=== PATIENT | female | born 1965 | race Caucasian/White ===

== ENCOUNTER 2017-05-14 14:39 | Emergency (ER) | payer BC ==
[~2017-05-14] VITALS: Ht 165.1 cm; Wt 59.0 kg
[~2017-05-14 14:39] MED LIST: DICY10CA26 PO; HYDR1TAB PO
--- NOTE | 2017-05-14 15:32 | Diagnostic Imaging Report ---
INDICATION: Right ankle pain, swelling. COMPARISON: None. EXAMINATION: Three views of the right ankle were obtained. FINDINGS: No fracture or dislocation. The articular surfaces are normal. No osseous lesion. IMPRESSION: Negative right ankle. Dictated by: Dictated on workstation # [id number]
--- NOTE | 2017-05-14 15:33 | Diagnostic Imaging Report ---
INDICATION: Right rib pain, injury. COMPARISON: None. FINDINGS: 3 views of the right ribs with BB marker in place demonstrate no obvious fracture or osseous lesion. There is no pneumothorax or effusion. IMPRESSION: Negative right rib series. Dictated by: Dictated on workstation # [id number]
--- NOTE | 2017-05-14 15:34 | Diagnostic Imaging Report ---
INDICATION: Right foot pain. COMPARISON: None. EXAMINATION: Three views of the right foot were obtained. FINDINGS: No fracture or dislocation. The articular surfaces are normal. There is no osseous lesion or erosion. No foreign body. IMPRESSION: Negative right foot. Dictated by: Dictated on workstation # [id number]
[2017-05-14] MEDS ORDERED: HYDROcodone/APAP 7.5 MG/325 MG (LORTAB, LORCET PLUS) TABLET PO STA (15:39)
--- NOTE | 2017-05-14 15:39 | ED Lower Extremity ---
General Chief Complaint: Trauma-Non Activation Stated Complaint: R FOOT INJ Nursing Triage Note: Patient advises she was seated in a chair with a blanket over her lap. She stood up and felt her shoes slip and and felt her ankle twist beneath her. She advises that she fell against a counter top striking her right ribs. She denies hitting her head or loss of consciousness at the time of the incident. She c/o right foot and ankle pain as well as right rib pain. Nursing Sepsis Screen: No Definite Risk History of Present Illness Time seen by provider: 14:50 Location Injury Occurred: patients residence Onset: this morning Pain/Injury Location: right ankle, right other (right lower ribs) Method of Injury: fell Modifying Factors: Improves With Rest Allergies and Home Medications Allergies Uncoded Allergies: SULFA (Allergy, Unknown, 05/14/17) Home Medications Dicyclomine Hcl 10 Mg Capsule, 1 EACH PO BID, (Reported) Hydrocodone Bit/Acetaminophen 1 Each Tablet, 1-2 EACH PO Q4HR PRN, #30 (Reported ) Constitutional: no symptoms reported, see HPI Respiratory: see HPI, other (right rib pain) Musculoskeletal: see HPI, joint pain (right ankle and lateral foot pain) All Other Systems Reviewed Negative Unless Noted: Yes Past Ictgfiv-Aodvmm-Fyvvbe Hx Patient Social History Alcohol Use: Denies Use Recreational Drug Use: No Smoking Status: Current Everyday Smoker Type Used: Cigarettes Recent Foreign Travel: No Contact w/Someone Who Travel: No Recent Hopitalizations: No Seasonal Allergies Seasonal Allergies: No Surgeries Surgeries: Hysterectomy, Thyroidectomy Respiratory Hx Respiratory Disorders: No Cardiovascular Hx Cardiac Disorders: No Neurological Hx Neurological Disorders: Yes (MIGRAIN HEADACHES) Reproductive System Hx Reproductive Disorders: No Sexually Transmitted Disease: No Genitourinary Hx Genitourinary Disorders: Yes Gastrointestinal Hx Gastrointestinal Disorders: Yes ("SPASTIC COLON") Musculoskeletal Hx Musculoskeletal Disorders: No Endocrine Hx Endocrine Disorders: No HEENT HX ENT Disorders: No Blood Transfusions Hx Blood Disorders: No Reviewed Nursing Assessment Reviewed/Agree w Nursing PMH: Yes Physical Exam Vital Signs Vital Sign - Last 12Hours Capillary Refill : Less Than 3 Seconds General Appearance: WD/WN, no apparent distress Neck: non-tender, full range of motion, supple, normal inspection Cardiovascular: normal peripheral pulses, regular rate, rhythm, no JVD, no murmur Respiratory: lungs clear, normal breath sounds, no respiratory distress, no accessory muscle use, other (pain to palpation right lower ribs, no crepitus noted. Pain with deep inspiration. No SOA.) Gastrointestinal: normal bowel sounds, non tender, soft, no organomegaly, no pulsatile mass Back: normal inspection, no CVA tenderness, no vertebral tenderness Ankles: right ankle normal range of motion, right ankle bone tenderness ( lateral), right ankle pain, right ankle soft tissue tenderness (lateral aspect) Feet: right foot pain, right foot soft tissue tenderness, right foot swelling ( fifth metatarsal) Neurologic/Psychiatric: no motor/sensory deficits, alert, normal mood/affect, oriented x 3 Skin: normal color, warm/dry Progress/Results/Core Measures Results/Orders My Orders Orders - ABELARDO GONZALEZ Ribs, Right 2-3 Views (05/14/17 15:04) Foot, Right, 3 View (05/14/17 15:04) Ankle, Right, 3 Views (05/14/17 15:04) Hydrocodone/Apap 7.5/325 Tab (Lortab 7. (05/14/17 15:39) Vital Signs/I&O Vital Sign - Last 12Hours 05/14/17 05/14/17 14:52 14:52 Temp 98.7 98.6 Pulse 86 76 Resp 14 14 B/P (MAP) 131/73 131/73 (92) Pulse Ox 98 98 O2 Delivery Room Air Blood Pressure Mean: 92 Progress Note : Time: 14:50 Progress Note Initial evaluation completed, recommended x-rays of the ribs, foot and ankle. Will reevaluate after these are completed. Hydrocodone 7.5/APAP 325 mg for pain. 1540 x-rays all negative for acute injuries. Discussed with patient. 4 inch Alex wrap applied to right ankle. Diagnostic Imaging Plain Films/CT/US/NM/MRI: ankle Comments NAME: PADDY CRABTREE Marissa [facility] REC#: [id number] PT STATUS: REG ER : 1965 PHYSICIAN: ABELARDO GONZALEZ ADMIT DATE: 05/14/17/ER Draft Date of Exam:05/14/17 ANKLE, RIGHT, 3 VIEWS INDICATION: Right ankle pain, swelling. COMPARISON: None. EXAMINATION: Three views of the right ankle were obtained. FINDINGS: No fracture or dislocation. The articular surfaces are normal. No osseous lesion. IMPRESSION: Negative right ankle. Dictated on workstation # [id number] Dict: 05/14/17 1530 Trans: 05/14/17 153 PJE [id number] Interpreted by: MITALI SAWYER Electronically signed by: Reviewed: Reviewed/Discussed Diagonstic Imaging: Xray Plain Films/CT/US/NM/MRI: other (right foot) Comments NAME: PADDY CRABTREE [facility] REC#: [id number] PT STATUS: REG ER : 1965 PHYSICIAN: ABELARDO GONZALEZ ADMIT DATE: 05/14/17/ER Draft Date of Exam:05/14/17 FOOT, RIGHT, 3 VIEW INDICATION: Right foot pain. COMPARISON: None. EXAMINATION: Three views of the right foot were obtained. FINDINGS: No fracture or dislocation. The articular surfaces are normal. There is no osseous lesion or erosion. No foreign body. IMPRESSION: Negative right foot. Dictated on workstation # [id number] Dict: 05/14/17 1531 Trans: 05/14/17 1533 PJE [id number] Interpreted by: MITALI SAWYER Electronically signed by: Reviewed: Reviewed by Ct Diagonstic Imaging: Xray Plain Films/CT/US/NM/MRI: other (right ribs) Comments NAME: PADDY CRABTREE [facility] REC#: [id number] PT STATUS: REG ER : 1965 PHYSICIAN: ABELARDO GONZALEZ ADMIT DATE: 05/14/17/ER Draft Date of Exam:05/14/17 RIBS, RIGHT 2-3 VIEWS INDICATION: Right rib pain, injury. COMPARISON: None. FINDINGS: 3 views of the right ribs with BB marker in place demonstrate no obvious fracture or osseous lesion. There is no pneumothorax or effusion. IMPRESSION: Negative right rib series. Dictated on workstation # [id number] Dict: 05/14/17 1530 Trans: 05/14/17 1532 SA [id number] Interpreted by: MITALI SAWYER Electronically signed by: Departure Impression Impression: Primary Impression: Fall Qualified Codes: W19.XXXA - Unspecified fall, initial encounter Additional Impressions: Ankle sprain Qualified Codes: S93.411A - Sprain of calcaneofibular ligament of right ankle , initial encounter Rib contusion Qualified Codes: S20.211A - Contusion of right front wall of thorax, initial encounter Disposition: HOME, SELF-CARE Condition: Improved Departure-Patient Inst. Decision time for Depature: 15:45 Referrals: IRAJ SAENZ DO (PCP/Family) Primary Care Physician Patient Instructions: Ankle Sprain (DC), RIB CONTUSION Add. Discharge Instructions: Ice to right ankle 20 minutes every 2-3 hours. Gentle range of motion. Advance activity as tolerated. Alternate ice and heat to right ribs. Use pillow to splint area for coughing and deep breathing every 1-2 hours. Follow-up with primary care provider in 3-4 days if symptoms are not improving. Return to emergency department if increased pain and right ankle, difficulty breathing, or new problems. Tylenol 650 mg every 6 hours and/or ibuprofen 600 mg every 8 hours. All discharge instructions reviewed with patient and/or family. Voiced understanding. Copy Copies To 1: IRAJ SAENZ AMY ARNP May 14, 2017 15:39
[2017-05-14 16:08] VITALS: BP 113/79
== END 2017-05-14 16:11 | disposition home or self-care (01) ==
LOC: EDUNIT# 14:39 → ER 14:40
DX: S93.401A Sprain of unspecified ligament of right ankle, initial encounter (principal); S20.211A Contusion of right front wall of thorax, initial encounter; G43.909 Migraine, unspecified, not intractable, without status migrainosus; F17.210 Nicotine dependence, cigarettes, uncomplicated; Z90.89 Acquired absence of other organs; Z87.19 Personal history of other diseases of the digestive system; Z90.710 Acquired absence of both cervix and uterus; W01.198A Fall on same level from slipping, tripping and stumbling with subsequent striking against other object, initial encounter; Y92.009 Unspecified place in unspecified non-institutional (private) residence as the place of occurrence of the external cause
CPT/HCPCS: 71100; 73610; 73630; 99283

== ENCOUNTER → 2019-08-23 | Outpatient (CLI) | payer OTHER ==
[2019-08-23 08:49] LABS: BASOPHILS # (AUTO) 0.1 10^3/uL (0.0-0.1); BASOPHILS % (AUTO) 1 % (0-10); EOSINOPHILS # (AUTO) 0.2 10^3/uL (0.0-0.3); EOSINOPHILS % (AUTO) 3 % (0-10); HEMATOCRIT 42 % (35-52); HEMOGLOBIN 13.7 G/DL (11.5-16.0); LYMPHOCYTES # (AUTO) 1.6 X 10^3 (1.0-4.0); LYMPHOCYTES % (AUTO) 16 % (12-44); MEAN CORPUSCULAR HEMOGLOBIN 30 PG (25-34); MEAN CORPUSCULAR HGB CONC 33 G/DL (32-36); MEAN CORPUSCULAR VOLUME 93 FL (80-99); MONOCYTES # (AUTO) 0.9 X 10^3 (0.0-1.0); MONOCYTES % (AUTO) 9 % (0-12); NEUTROPHILS % (AUTO) 72 % (42-75); PLATELET COUNT 377 10^3/uL (130-400); RED CELL DISTRIBUTION WIDTH 13.4 % (10.0-14.5); WHITE BLOOD COUNT 9.8 10^3/uL (4.3-11.0)
[2019-08-23 08:51] LABS: SMEAR SCAN COMMENT NO
[2019-08-23 09:11] LABS: ALANINE AMINOTRANSFERASE 12 U/L (0-55); ALBUMIN 4.4 GM/DL (3.2-4.5); ALKALINE PHOSPHATASE 74 U/L (40-136); BILIRUBIN,TOTAL 0.5 MG/DL (0.1-1.0); BUN/CREATININE RATIO 19; CALCIUM 9.7 MG/DL (8.5-10.1); CARBON DIOXIDE 24 MMOL/L (21-32); CHLORIDE 108 MMOL/L (98-107); CHOLESTEROL 274 MG/DL (< 200); CREATININE SERUM 0.69 MG/DL (0.60-1.30); GFR ESTIMATED > 60; GLUCOSE 90 MG/DL (70-105); HDL CHOLESTEROL 46 MG/DL (40-60); POTASSIUM 3.9 MMOL/L (3.6-5.0); SODIUM 141 MMOL/L (135-145); TRIGLYCERIDES 85 MG/DL (<150); URIC ACID 3.1 MG/DL (2.6-7.2); VLDL CHOLESTEROL 17 MG/DL (5-40)
[2019-08-23 09:30] LABS: BASOPHILS % (MANUAL) 1 %; EOSINOPHILS % (MANUAL) 6 %; LYMPHOCYTES % (MANUAL) 25 %; MONOCYTES % (MANUAL) 5 %; NEUTROPHILS % (MANUAL) 63 %; RBC MORPH NORMAL
[2019-08-23 09:31] LABS: FREE T4 (FREE THYROXINE) 0.99 NG/DL (0.70-1.48)
== END ==
LOC: LAB 08:35
PROVIDERS: ATTEND Family Medicine
DX: Z00.00 Encounter for general adult medical examination without abnormal findings (principal); M25.50 Pain in unspecified joint; M85.80 Other specified disorders of bone density and structure, unspecified site; R32 Unspecified urinary incontinence; R53.83 Other fatigue
CPT/HCPCS: 36415; 80053; 80061; 82306; 84439; 84443; 84550; 85007; 85027

== ENCOUNTER → 2019-09-05 | Outpatient (CLI) | payer OTHER ==
--- NOTE | 2019-09-05 11:00 | Diagnostic Imaging Report ---
EXAMINATION: CT low dose lung cancer screening exam. INDICATION: 30 pack year smoking history. TECHNIQUE: Routine images of the thorax were obtained using the CT low-dose lung cancer screening protocol. COMPARISON: There are no prior CT examinations of the thorax available for comparison. FINDINGS: There is an irregular 6.3 mm parenchymal density in the anterior aspect of the right middle lobe medially. In the lateral aspect of the right middle lobe, there is a similar appearing density. There are also a few patchy densities in the inferior most portion of the right lung base. These findings were not present on the prior CT abdomen/pelvis exam of 07/29/2016. I am not convinced that these areas of slightly increased density are neoplastic in nature. They could merely be secondary to mild atelectasis/infiltrate. Even so, I would recommend that a short-term (3 month) followup low-dose lung cancer screening exam be performed for further study. No other parenchymal abnormality is identified. There are mild emphysematous changes involving both lungs. There is no sign of failure, pneumonia, or pleural effusion to indicate an acute abnormality. The heart size is within normal limits. There are no coronary artery calcifications identified. The aorta is not abnormally dilated. There is no obvious mediastinal or hilar adenopathy. The left lobe of the thyroid does seem more prominent than the right. There is no evidence for a mass involving the left lobe. If further study is desired, then ultrasound would be recommended. There is no obvious breast mass. The sections through the upper abdomen fail to show any sign of an acute abnormality. The bone windows are unremarkable for a fracture or destructive lesion. IMPRESSION: 1. The small parenchymal abnormalities involving the right middle lobe are of uncertain etiology. While these are unlikely to be neoplastic in nature, a short-term (3 month) followup CT low-dose lung cancer screening exam would be recommended for further evaluation. 2. There is no acute cardiopulmonary abnormality identified. 3. There are emphysematous changes involving both lungs. Lung-RADS category: 4A. Dictated by: Dictated on workstation # [id number]
--- NOTE | 2019-09-05 12:05 | Diagnostic Imaging Report ---
EXAMINATION: Digital mammogram bilateral screening. The current study was also evaluated with a Computer Aided Detection (CAD) system. 3-D tomosynthesis was also performed and reviewed. INDICATION: Screening. This study was compared to the prior exam of 03/21/2013. At this time, there are no current complaints. FINDINGS: The fibroglandular tissue in both breasts is heterogeneously dense. This does limit the sensitivity of this exam. Overall, there does not appear to have been any significant change when compared to the prior study. No primary or secondary sign of malignancy is noted. 3D tomographic images fail to show any sign of malignancy. IMPRESSION: 1. There is no evidence for malignancy. 2. The patient should have her annual bilateral screening mammogram on schedule in August 2020. ACR BI-RADS Category 1: Negative. Result letter will be mailed to the patient. Note: At least 10% of breast cancer is not imaged by mammography. Dictated by: Dictated on workstation # [id number]
== END ==
LOC: RAD 09:55
PROVIDERS: ATTEND Family Medicine
DX: Z12.31 Encounter for screening mammogram for malignant neoplasm of breast (principal); J43.9 Emphysema, unspecified; J98.4 Other disorders of lung; Z87.891 Personal history of nicotine dependence
CPT/HCPCS: 77067

== ENCOUNTER → 2019-12-10 | Outpatient (CLI) | payer OTHER ==
--- NOTE | 2019-12-10 13:55 | Diagnostic Imaging Report ---
EXAMINATION: CT Chest without contrast (lung screening). TECHNIQUE: Multiple contiguous axial images were obtained through the chest without the use of intravenous contrast according to lung cancer screening protocol. All CT scans use one or more of the following dose optimizing techniques: automated exposure control, MA and/or KvP adjustment based on a patient size and exam type, or iterative reconstruction. HISTORY: 30 pack year history of smoking. COMPARISON: 09/05/2019 FINDINGS: There is no edema or pneumonia. No pleural effusion. No pneumothorax. No suspicious nodules. Previously seen right middle lobe nodules have resolved. There is a new 4 mm average diameter nodule in the right apex. Lungs are moderately emphysematous. Heart size is normal. There are no coronary artery calcifications. No pericardial effusion. Aorta is normal in caliber. There is no axillary or supraclavicular lymphadenopathy. There is no mediastinal lymphadenopathy. Limited views of the upper abdomen are unremarkable. There are no suspicious osseus lesions. IMPRESSION: 1. No suspicious pulmonary nodules. Previously seen nodules have resolved. Patient can continue annual screening. LUNG-RADS CATEGORY: 2 MODIFIER: None. Dictated by: Dictated on workstation # [id number]
== END ==
LOC: RAD 12:35
PROVIDERS: ATTEND Family Medicine
DX: Z12.2 Encounter for screening for malignant neoplasm of respiratory organs (principal); E55.9 Vitamin D deficiency, unspecified; F17.210 Nicotine dependence, cigarettes, uncomplicated
CPT/HCPCS: 36415; 82306